=== PATIENT | male | born 1975 | race Caucasian/White ===

== ENCOUNTER 2018-06-06 08:38 | Emergency (ER) | payer OTHER ==
[~2018-06-06] VITALS: Ht 180.3 cm; Wt 93.4 kg
[2018-06-06 08:42] VITALS: BP 113/81; PULSE 72; TEMP 36.6; O2SAT 97; Ht 180.3 cm; Wt 93.4 kg
--- NOTE | 2018-06-06 15:45 | EMERGENCY ROOM VISIT NOTE ---
ED Visit Note First contact with patient: 08:48 CHIEF COMPLAINT: Suture removal. HISTORY OF PRESENT ILLNESS: Mr. Alonso is a 43-year-old white male who ambulates into the ED requesting suture removal for a /left index finger laceration he sustained 13 days ago. He reports he feels like the laceration has been healing well. He has not seen any signs of infection and denies pain, swelling, redness or drainage in or from the wound. PHYSICAL EXAM: Vital Signs: Date Time Temp Pulse Resp B/P (MAP) Pulse Ox O2 Delivery O2 Flow Rate FiO2 06/06/18 08:42 36.6 72 20 113/81 97 Room Air General: 43-year-old white male in no acute distress, nontoxic-appearing, afebrile and hemodynamically stable. Neurological: Awake, alert and oriented 3. Answering questions appropriately and following commands. Skin: Clean dry and intact wound on the dorsal aspect of the PIP joint on the left index finger without signs of infection (erythema, swelling, tenderness, purulent drainage). ED COURSE: Patient is assessed as noted above. Patient's medication list was reviewed. 2 sutures were removed without any difficulty and there was no separation of the wound edges. Patient was educated about today's findings and instructed on his treatment plan ; he verbalized understanding and agreement with this plan. DISPOSITION: Patient discharged home in stable condition. CLINICAL IMPRESSION: Suture removal; Well healing laceration. PLAN: Wound care and signs of infection were discussed with the patient. Patient was encouraged to follow-up with PCP or return to the ED for any signs of infection or any new/concerning symptoms.
== END 2018-06-06 09:10 | disposition home or self-care (01) ==
LOC: C.EDB 08:38 → C.EDA 09:10
DX: S61.211D Laceration without foreign body of left index finger without damage to nail, subsequent encounter (principal); X58.XXXD Exposure to other specified factors, subsequent encounter